=== PATIENT | male | born 1960 | race Caucasian/White ===

== ENCOUNTER 2020-10-09 19:11 | Observation (INO) | payer MEDICAID ==
--- NOTE | 2020-10-09 19:27 | ER Document Report ---
ED General - General Chief Complaint: Shortness Of Breath Stated Complaint: SHORTNESS OF BREATH Time Seen by Provider: 10/09/20 19:26 Primary Care Provider: CATHRYN PITTS [NO LOCAL MD] - Follow up as needed - HPI Notes: 59-year male presents with shortness of breath. 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 He reports that he has had a cough for about the past week. For the past 3 days he feels like he cannot exhale, he is wheezing, has had shortness of breath. States that his symptoms greatly increased tonight, felt like he plateaued. He received 2 nebulized treatments, 2 g magnesium, 125 mg Solu-Medrol with EMS. He reports that he had improvement with him symptoms, however now symptoms are returning. Per EMS report he was found tripoding. He has never used BiPAP/CPAP before. EMS Covid swab negative. - Related Data Allergies/Adverse Reactions: erythromycin base Allergy (Verified 10/09/20 20:59) Past Medical History - General Information source: Patient - Social History Smoking Status: Current Every Day Smoker Family History: Reviewed & Not Pertinent Review of Systems - Review of Systems Constitutional: denies: Fever EENT: No symptoms reported Cardiovascular: denies: Chest pain Respiratory: Cough, Short of breath, Wheezing Gastrointestinal: denies: Abdominal pain, Diarrhea, Nausea, Vomiting Genitourinary: No symptoms reported Male Genitourinary: No symptoms reported Musculoskeletal: No symptoms reported Skin: No symptoms reported Hematologic/Lymphatic: No symptoms reported Neurological/Psychological: No symptoms reported Physical Exam - Vital signs Vitals: Resp BP Pulse Ox 21 H 130/104 H 99 10/09/20 19:20 10/09/20 19:20 10/09/20 19:20 - General General appearance: Alert In distress: Moderate - HEENT Head: Normocephalic, Atraumatic Extraocular movements intact: Yes Pupils: PERRL - Respiratory Respiratory status: Labored, Pursed lip breathing, Other - Speaks in short sentences Breath sounds: Decreased air movement, Wheezing - Diffuse - Cardiovascular Rhythm: Regular Heart sounds: Normal auscultation - Abdominal Tenderness: Nontender - Extremities General lower extremity: No: Edema - Neurological Neuro grossly intact: Yes Cognition: Normal Orientation: AAOx4 - Psychological Associated symptoms: Normal affect - Skin Skin Temperature: Warm Course - Re-evaluation Re-evalutation: 59-year-old male history of COPD presents with cough and worsening shortness of breath over the past 3 days. Patient arrives in respiratory distress, pursed lip breathing, tachypnea, speaking in short sentences, poor air movement and diffuse wheezing. Given his respiratory status, he was started on BiPAP along with 20 mg continuous albuterol. Received magnesium and steroids prior to arrival. Rapid Covid swab negative with EMS, will obtain full respiratory panel to see if there is any viral illness triggering his COPD exacerbation. Chest x- ray to evaluate for consolidation. He does not appear edematous, however will obtain BNP to see if there is any signs of heart failure. EKG nonischemic, no chest pain. 10/09/20 21:07 Patient reassessed after albuterol has finished. Lungs sounds markedly and croup, increased air movement, wheezing is much less pronounced. Looks more comfortable and states he is feeling better 10/09/20 21:09 More information obtained from patient. Patient has history of HI in October 2019, he then underwent CABG P reports he then had another HI in March [address] ICD as "bypass didn't work". He receives his care in [place] typically. Nursing spoke to his , apparently patient is also supposed to be on home O2 but refuses to wear it. 10/09/20 21:46 Mild leukocytosis, no associated left shift. Elevated eosinophils which can be seen with respiratory disease. Electrolytes within normal is. Creatinine within normal limits. No marked elevation of BNP. Respiratory panel negative. Chest x-ray without consolidation. 10/09/20 21:48 Resp 10/09/20 21:[address] Frey for admission. Will trial patient off BiPAP - Vital Signs Vital signs: Temp Pulse Resp BP Pulse Ox 97.9 F 95 26 H 132/109 H 95 10/09/20 20:13 10/09/20 20:13 10/09/20 22:00 10/09/20 22:00 10/09/20 22:00 - Laboratory Results Result Diagrams: 10/09/20 19:27 10/09/20 19:27 Laboratory Results Interpreted: 10/09/20 10/09/20 10/09/20 19:27 19: 22:00 WBC 11.0 H Eos % (Auto) 15.1 H Absolute Eos (auto) 1.7 H VBG pH 7.28 L NT-Pro-B Natriuret Pep 240 H Critical Laboratory Results Reviewed: No Critical Results - Radiology Results Critical Radiology Results Reviewed: No Critical Results - EKG Interpretation by Me Additional EKG results interpreted by me: EKG is interpreted by me. Sinus rhythm, rate 94. QRS 102, QTC within normal limits. Q waves inferiorly, previous HI. No ST segment elevation or depression. Discharge - Discharge Clinical Impression: COPD exacerbation Disposition: ADMITTED INPATIENT Admitting Provider: [facility] Unit Admitted: Medical Floor Referrals: LOCALMD,NO [NO LOCAL MD] - Follow up as needed
[2020-10-09] MEDS ORDERED: ALBUTEROL SULFATE 0.083% NEB 2.5 MG/3 ML AMPUL NEB ONE (19:33)
[2020-10-09] MEDS ORDERED: GUAIFENESIN 600 MG TABLET.SA PO ONE (19:34)
[2020-10-09 20:05] LABS: ABSOLUTE EOSINOPHILS # (AUTO) 1.7 10^3/uL (0.0-0.6); ABSOLUTE LYMPHOCYTES (AUTO) 1.8 10^3/uL (0.5-4.7); ABSOLUTE MONOCYTES (AUTO) 0.8 10^3/uL (0.1-1.4); ABSOLUTE NEUT (AUTO) 6.6 10^3/uL (1.7-8.2); ANION GAP 7 (5-19); BASOPHILS % (AUTO) 0.3 % (0-2); BLOOD UREA NITROGEN 9 mg/dL (7-20); CALCIUM 9.7 mg/dL (8.4-10.2); CARBON DIOXIDE 24 mmol/L (22-30); CHLORIDE 107 mmol/L (98-107); EOSINOPHILS % (AUTO) 15.1 % (0-6); GLUCOSE 108 mg/dL (75-110); HEMATOCRIT 45.2 % (37.9-51.0); HEMOGLOBIN 15.3 g/dL (13.5-17.0); LYMPHOCYTES % (AUTO) 16.8 % (13-45); MEAN CORPUSCULAR HEMOGLOBIN 30.1 pg (27.0-33.4); MEAN CORPUSCULAR HGB CONC 33.8 g/dL (32.0-36.0); MEAN CORPUSCULAR VOLUME 89 fl (80-97); MONOCYTES % (AUTO) 7.4 % (3-13); PLATELET COUNT 251 10^3/uL (150-450); POTASSIUM 4.2 mmol/L (3.6-5.0); RED BLOOD COUNT 5.08 10^6/uL (4.35-5.55); RED CELL DISTRIBUTION WIDTH 13.7 % (11.5-14.0); SEGMENTED NEUTROPHILS % (AUTO) 60.4 % (42-78); TOTAL CELLS COUNTED % (AUTO) 100 %
--- NOTE | 2020-10-09 20:49 | RADIOLOGY REPORT (SQ) ---
CLINICAL INDICATION: SOB. TECHNIQUE: A single portable AP view was obtained of the chest at 2014 hours. Additional repeat image COMPARISON: None. FINDINGS: The cardiomediastinal silhouette is enlarged but stable. The lungs are grossly clear. No evidence of effusion or pneumothorax. Chronic parenchymal lung change. Crowding at the bases. Emphysematous change. IMPRESSION: No evidence of active intrathoracic disease. Chronic change
[2020-10-09 22:06] LABS: VENOUS BLOOD BASE EXCESS -2.3 mmol/L; VENOUS BLOOD HCO3 25.4 mmol/L (20-32); VENOUS BLOOD PCO2 55.5 mmHg (35-63); VENOUS BLOOD PH 7.28 (7.30-7.42)
[2020-10-09] MEDS ORDERED: ACETAMINOPHEN 325 MG TABLET PO PRN (22:34)
[2020-10-09] MEDS ORDERED: IPRATROPIUM/ALBUTEROL 0.5-2.5 MG/3 ML AMPUL NEB PRN (22:34)
[2020-10-09] MEDS: METOPROLOL SUCCINATE 25 MG TAB.SR.24H PO SCH (23:08)
[2020-10-09] MEDS: FAMOTIDINE 20 MG TABLET PO SCH (23:08)
--- NOTE | 2020-10-09 23:36 | PDOC H&P ---
History of Present Illness Admission Date/PCP: VALERI WALLER NP Patient complains of: Shortness of breath History of Present Illness: DEAN WOODS is a 59 year old male with a history of COPD, CAD status post CABG a year ago who now presents with 1 day duration of worsening of shortness of breath. Patient states that he has a longstanding chronic shortness of breath with exertion but over the past 24 hours the shortness of breath got worse to a level where he became short of breath at rest. He states that he used nebulizer multiple times at home but did not improve. Patient also states that he has been having more cough than usual for the past 2 weeks which is productive of clear whitish sputum. He denies any fever, chills, chest pain, palpitation, nausea, vomiting, body aches, runny nose, sore throat any change in his bowel or urinary habits. He denies any recent sick contact history. Past Medical History Cardiac Medical History: Reports: Hyperlipidema, Hypertension Pulmonary Medical History: Reports: Chronic Obstructive Pulmonary Disease (COPD) Past Surgical History Past Surgical History: Reports: Cardiac Catheterization - stents x5 Social History Information Source: Patient Lives with: Family Smoking Status: Current Every Day Smoker Hx Recreational Drug Use: No Drugs: None - Advance Directive Resuscitation Status: Full Code Family History Parental Family History Reviewed: Yes Children Family History Reviewed: Yes Sibling(s) Family History Reviewed.: Yes Medication/Allergy Allergies/Adverse Reactions: erythromycin base Allergy (Verified 10/09/20 20:59) Review of Systems Constitutional: ABSENT: chills, fever(s), headache(s), weight gain, weight loss Eyes: ABSENT: visual disturbances Ears: ABSENT: hearing changes Nose, Mouth, and Throat: ABSENT: headache(s), mouth pain, sore throat Cardiovascular: PRESENT: as per HPI. ABSENT: chest pain, edema, orthropnea, palpitations Respiratory: PRESENT: as per HPI Gastrointestinal: ABSENT: abdominal pain, constipation, diarrhea, hematemesis, hematochezia, nausea, vomiting Genitourinary: ABSENT: dysuria, hematuria Musculoskeletal: ABSENT: joint swelling Integumentary: ABSENT: rash, wounds Neurological: ABSENT: abnormal gait, abnormal speech, confusion, dizziness, focal weakness, syncope Psychiatric: ABSENT: anxiety, depression, homidical ideation, suicidal ideation Endocrine: ABSENT: cold intolerance, heat intolerance, polydipsia, polyuria Hematologic/Lymphatic: ABSENT: easy bleeding, easy bruising Physical Exam Vital Signs: Temp Pulse Resp BP Pulse Ox 97.9 F 95 26 H 132/109 H 95 10/09/20 20:13 10/09/20 20:13 10/09/20 22:00 10/09/20 22:00 10/09/20 22:00 Intake & Output 10/08/20 10/09/20 10/10/20 06:59 06:59 06:59 Weight 84.7 kg Additional comments: GENERAL APPEARANCE: Alert and oriented x3, in no acute distress HEENT: Normocephalic and atraumatic. No scleral icterus. Moist oral mucosa NECK: Supple. No lymphadenopathy or tenderness. No carotid bruit. No JVD CHEST: Symmetric. Nontender to palpation. LUNGS: Decreased air movement bilaterally. No wheezing or crackles appreciated HEART: Regular rate and rhythm with normal S1 and S2. No murmurs, gallops, or rubs. ABDOMEN: Flat, soft, active bowel sounds, no direct or rebound tenderness. No organomegaly detected. EXTREMITIES: No cyanosis, clubbing, or edema. MUSCULOSKELETAL: No deformity, atrophy or swelling noted PSYCHIATRIC: Recent and remote memory is intact. Appropriate mood and affect. SKIN: Warm, dry, and well perfused. No lesions or rashes are noted. NEUROLOGIC: No focal sensory or motor deficits are noted. Results Laboratory Results: 10/09/20 19:27 10/09/20 19:27 10/09/20 10/09/20 10/09/20 19:27 19:27 22:00 WBC 11.0 H RBC 5.08 Hgb 15.3 Hct 45.2 MCV 89 MCH 30.1 MCHC 33.8 RDW 13.7 Plt Count 251 Seg Neutrophils % 60.4 VBG pH 7.28 L VBG pCO2 55.5 VBG HCO3 25.4 VBG Base Excess -2.3 Sodium 137.9 Potassium 4.2 Chloride 107 Carbon Dioxide 24 Anion Gap 7 BUN 9 Creatinine 0.94 Est GFR ( Amer) > 60 Glucose 108 Calcium 9.7 10/09/20 19:27 NT-Pro-B Natriuret Pep 240 H Impressions: Chest X-Ray 10/09/20 19:33 IMPRESSION: No evidence of active intrathoracic disease. Chronic change Assessment and Plan - Diagnosis (1) COPD exacerbation Is this a current diagnosis for this admission?: Yes Plan: Presents with acute worsening of shortness of breath Physical exam was notable for globally decreased air movement Chest x-ray showed no acute findings Has no leukocytosis Venous blood gas showed a pH of 7.28 with a PCO2 of 55 On arrival to the ED patient was in significant respiratory distress and was placed on BiPAP, was given magnesium sulfate, IV steroid and breathing treatment which improved his symptoms Continue present treatment with DuoNeb Placed him on prednisone 40 mg p.o. daily Azithromycin 500 mg p.o. daily Currently patient appears to be doing well and will transition him to intranasal oxygen Closely monitor respiratory parameters for any sign of impending respiratory failure (2) CAD (coronary artery disease) Is this a current diagnosis for this admission?: Yes Plan: Patient denies chest pain on this presentation Continue metoprolol, aspirin and high intensity statin (3) Hx of CABG Is this a current diagnosis for this admission?: Yes Plan: Continue management as stated above (4) ICD (implantable cardioverter-defibrillator) in place Is this a current diagnosis for this admission?: Yes (5) Overweight (BMI 25.0-29.9) Is this a current diagnosis for this admission?: Yes - Time Time Spent with patient: 35 or more minutes Total Critical Time (Minutes): 45 Smoking Cessation Education: 3 to 10 minutes Medications reviewed and adjusted accordingly: Yes Anticipated Discharge Disposition: Home, Self Care Anticipated Discharge Timeframe: within 72 hours - Inpatient Certification Based on my medical assessment, after consideration of the patient's comorbidities, presenting symptoms, or acuity I expect that the services needed warrant INPATIENT care.: Yes I certify that my determination is in accordance with my understanding of Medicare's requirements for reasonable and necessary INPATIENT services [42 CFR 412.3e].: Yes Medical Necessity: Failure to Improve With Outpatient Therapy, Need for Nebulizer Therapy and Monitoring of Response, Risk of Complication if Not Cared For in Hospital Post Hospital Care: D/C or Transfer Summary
[2020-10-10 06:44] LABS: ABSOLUTE LYMPHOCYTES (AUTO) 0.5 10^3/uL (0.5-4.7); ABSOLUTE MONOCYTES (AUTO) 0.1 10^3/uL (0.1-1.4); ABSOLUTE NEUT (AUTO) 5.5 10^3/uL (1.7-8.2); BASOPHILS % (AUTO) 0.1 % (0-2); EOSINOPHILS % (AUTO) 0.6 % (0-6); HEMATOCRIT 42.3 % (37.9-51.0); HEMOGLOBIN 14.4 g/dL (13.5-17.0); LYMPHOCYTES % (AUTO) 7.7 % (13-45); MEAN CORPUSCULAR VOLUME 88 fl (80-97); PLATELET COUNT 226 10^3/uL (150-450); RED BLOOD COUNT 4.79 10^6/uL (4.35-5.55); RED CELL DISTRIBUTION WIDTH 13.5 % (11.5-14.0); SEGMENTED NEUTROPHILS % (AUTO) 89.6 % (42-78); TOTAL CELLS COUNTED % (AUTO) 100 %; WHITE BLOOD COUNT 6.2 10^3/uL (4.0-10.5)
[2020-10-10 07:05] LABS: ALBUMIN 4.4 g/dL (3.5-5.0); ALKALINE PHOSPHATASE 81 U/L (38-126); ANION GAP 9 (5-19); ASPARTATE AMINO TRANSFERASE 20 U/L (17-59); BILIRUBIN,DIRECT 0.2 mg/dL (0.0-0.4); BILIRUBIN,TOTAL 0.4 mg/dL (0.2-1.3); BLOOD UREA NITROGEN 12 mg/dL (7-20); CALCIUM 9.9 mg/dL (8.4-10.2); CARBON DIOXIDE 22 mmol/L (22-30); CHLORIDE 106 mmol/L (98-107); GLUCOSE 165 mg/dL (75-110); POTASSIUM 4.6 mmol/L (3.6-5.0)
[2020-10-10] MEDS: FAMOTIDINE 20 MG TABLET PO SCH (09:36)
[2020-10-10] MEDS: METOPROLOL SUCCINATE 25 MG TAB.SR.24H PO SCH (09:36)
[2020-10-10] MEDS ORDERED: ASPIRIN 81 MG TABLET, CHEWABLE PO SCH (10:00)
[2020-10-10] MEDS ORDERED: ENOXAPARIN SODIUM INJ 40 MG/0.4 ML DISP.SYRIN SUBCUT SCH (10:00)
[2020-10-10 12:59] VITALS: BP 122/81
--- NOTE | 2020-10-10 14:44 | PDOC DISCHARGE SUMMARY ---
Impression - Admit/DC Date/PCP Admission Date/Primary Care Provider: 10/09/20 23:02 VALERI WALLER NP Discharge Date: 10/10/20 - Discharge Diagnosis (1) COPD exacerbation Is this a current diagnosis for this admission?: Yes (2) CAD (coronary artery disease) Is this a current diagnosis for this admission?: Yes (3) Hx of CABG Is this a current diagnosis for this admission?: Yes (4) ICD (implantable cardioverter-defibrillator) in place Is this a current diagnosis for this admission?: Yes (5) Overweight (BMI 25.0-29.9) Is this a current diagnosis for this admission?: Yes - Additional Information Resuscitation Status: Full Code Discharge Diet: Regular Discharge Activity: Activity As Tolerated Referrals: VALERI WALLER NP [Primary Care Provider] - 10/14/20 9:00 am Prescriptions: Prednisone [Deltasone 20 mg Tablet] 40 mg PO DAILY 5 Days #10 tablet Ipratropium/Albuterol Sulfate [Duoneb 3 ml Ampul] 3 ml NEB RTQ6HP PRN #30 vial.neb PRN Reason: Doxycycline Hyclate [Vibramycin 100 mg Tablet] 100 mg PO BID 4 Days #8 tablet Home Medications: Aspirin [Aspirin 81 mg Chewable Tablet] 81 mg PO DAILY 10/10/20 Atorvastatin Calcium [Lipitor] 80 mg PO QPM 10/10/20 Clopidogrel Bisulfate [Plavix 75 mg Tablet] 75 mg PO DAILY 10/10/20 Doxycycline Hyclate [Vibramycin 100 mg Tablet] 100 mg PO BID 4 Days #8 tablet 10/10/20 Fluticasone/Umeclidin/Vilanter [Trelegy 100-62.5-25 Mcg Ellipta 14 Dose/Dpi] 1 puff IH QAM 10/10/20 Ipratropium/Albuterol Sulfate [Duoneb 3 ml Ampul] 3 ml NEB RTQ6HP PRN #30 vial.neb 10/10/20 Lisinopril [Prinivil 5 mg Tablet] 5 mg PO QPM 10/10/20 Metoprolol Succinate [Toprol Xl 50 mg Tab.sr] 50 mg PO DAILY 10/10/20 Prednisone [Deltasone 20 mg Tablet] 40 mg PO DAILY 5 Days #10 tablet 10/10/20 Ranolazine [Ranolazine ER] 500 mg PO BID 10/10/20 History of Present Illiness History of Present Illness: According to admitting provider: DEAN WOODS is a 59 year old male with a history of COPD, CAD status post CABG a year ago who now presents with 1 day duration of worsening of shortness of breath. Patient states that he has a longstanding chronic shortness of breath with exertion but over the past 24 hours the shortness of breath got worse to a level where he became short of breath at rest. He states that he used nebulizer multiple times at home but did not improve. Patient also states that he has been having more cough than usual for the past 2 weeks which is productive of clear whitish sputum. He denies any fever, chills, chest pain, palpitation, nausea, vomiting, body aches, runny nose, sore throat any change in his bowel or urinary habits. He denies any recent sick contact history. Hospital Course Hospital Course: Patient presented to the hospital with shortness of breath and audible wheezing. He was treated for acute COPD exacerbation. It seems his COPD exacerbation was secondary to sandblasting activity that he did at home. He has increased cough and increased sputum production. Initially in the ER, he was noted to be working to breathe. He was given treatment with DuoNeb's. He also received steroids. His breathing subsequently improved. His chest x-ray shows no evidence of pneumonia. Covid test was negative. Today, he is doing a lot better. He is very to baseline terms of his breathing. He is also saturating adequately on room air this morning. He has no evidence of labored breathing on his stable. Discharged home on DuoNeb's to use with his nebulizer nebulizer, doxycycline as well as prednisone for continued treatment of his COPD exacerbation. Physical Exam Vital Signs: Temp Pulse Resp BP Pulse Ox 98.1 F 84 16 122/81 97 10/10/20 12:55 10/10/20 13:02 10/10/20 13:02 10/10/20 12:55 10/10/20 13:02 Intake & Output 10/09/20 10/10/20 10/11/20 06:59 06:59 06:59 Intake Total 222 831 Balance 222 831 Weight 76.1 kg General appearance: PRESENT: no acute distress, cooperative Neck exam: ABSENT: JVD Respiratory exam: PRESENT: symmetrical, unlabored, wheezes - mild expiratory wheezing in bilateral lungs. ABSENT: accessory muscle use, retraction, tachypnea Cardiovascular exam: PRESENT: +S1, +S2. ABSENT: tachycardia GI/Abdominal exam: PRESENT: soft. ABSENT: tenderness Musculoskeletal exam: PRESENT: ambulatory Neurological exam: PRESENT: alert, awake, oriented to person, oriented to place, oriented to time Results Laboratory Results: WBC 6.2 10^3/uL (4.0-10.5) 10/10/20 05:46 RBC 4.79 10^6/uL (4.35-5.55) 10/10/20 05:46 Hgb 14.4 g/dL (13.5-17.0) 10/10/20 05:46 Hct 42.3 % (37.9-51.0) 10/10/20 05:46 MCV 88 fl (80-97) 10/10/20 05:46 MCH 30.0 pg (27.0-33.4) 10/10/20 05:46 MCHC 34.0 g/dL (32.0-36.0) 10/10/20 05:46 RDW 13.5 % (11.5-14.0) 10/10/20 05:46 Plt Count 226 10^3/uL (150-450) 10/10/20 05:46 Lymph % (Auto) 7.7 % (13-45) L 10/10/20 05:46 [place] % (Auto) 2.0 % (3-13) L 10/10/20 05:46 Eos % (Auto) 0.6 % (0-6) 10/10/20 05:46 Baso % (Auto) 0.1 % (0-2) 10/10/20 05:46 Absolute Neuts (auto) 5.5 10^3/uL (1.7-8.2) 10/10/20 05:46 Absolute Lymphs (auto) 0.5 10^3/uL (0.5-4.7) 10/10/20 05:46 Absolute Monos (auto) 0.1 10^3/uL (0.1-1.4) 10/10/20 05:46 Absolute Eos (auto) 0.0 10^3/uL (0.0-0.6) 10/10/20 05:46 Absolute Basos (auto) 0.0 10^3/uL (0.0-0.2) 10/10/20 05:46 Seg Neutrophils % 89.6 % (42-78) H 10/10/20 05:46 VBG pH 7.28 (7.30-7.42) L 10/09/20 22:00 VBG pCO2 55.5 mmHg (35-63) 10/09/20 22:00 VBG HCO3 25.4 mmol/L (20-32) 10/09/20 22:00 VBG Base Excess -2.3 mmol/L 10/09/20 22:00 Sodium 137.3 mmol/L (137-145) 10/10/20 05:46 Potassium 4.6 mmol/L (3.6-5.0) 10/10/20 05:46 Chloride 106 mmol/L (98-107) 10/10/20 05:46 Carbon Dioxide 22 mmol/L (22-30) 10/10/20 05:46 Anion Gap 9 (5-19) 10/10/20 05:46 BUN 12 mg/dL (7-20) 10/10/20 05:46 Creatinine 0.86 mg/dL (0.52-1.25) 10/10/20 05:46 Est GFR ( Amer) > 60 (>60) 10/10/20 05:46 Est GFR (MDRD) Non-Af > 60 (>60) 10/10/20 05:46 Glucose 165 mg/dL (75-110) H 10/10/20 05:46 Calcium 9.9 mg/dL (8.4-10.2) 10/10/20 05:46 Total Bilirubin 0.4 mg/dL (0.2-1.3) 10/10/20 05:46 Direct Bilirubin 0.2 mg/dL (0.0-0.4) 10/10/20 05:46 Neonat Total Bilirubin Not Reportable 10/10/20 05:46 Neonat Direct Bilirubin Not Reportable 10/10/20 05:46 Neonat Indirect Bili Not Reportable 10/10/20 05:46 AST 20 U/L (17-59) 10/10/20 05:46 ALT 22 U/L (<50) 10/10/20 05:46 Alkaline Phosphatase 81 U/L (38-126) 10/10/20 05:46 NT-Pro-B Natriuret Pep 240 pg/mL (<125) H 10/09/20 19:27 Total Protein 7.0 g/dL (6.3-8.2) 10/10/20 05:46 Albumin 4.4 g/dL (3.5-5.0) 10/10/20 05:46 Luca Human Metapneumo PCR NOT DETECTED (NOT DETECT) 10/09/20 20:31 Adenovirus (PCR) NOT DETECTED (NOT DETECT) 10/09/20 20:31 B. pertussis DNA (PCR) NOT DETECTED (NOT DETECT) 10/09/20 20: B.parapertussis DNA PCR NOT DETECTED (NOT DETECT) 10/09/20 20: C. pneumoniae DNA (PCR) NOT DETECTED (NOT DETECT) 10/09/20 20: Coronavirus OC43 (PCR) NOT DETECTED (NOT DETECT) 10/09/20 20: Coronavirus HKU1 (PCR) NOT DETECTED (NOT DETECT) 10/09/20 20: Coronavirus 229E (PCR) NOT DETECTED (NOT DETECT) 10/09/20 20: Coronavirus NL63 (PCR) NOT DETECTED (NOT DETECT) 10/09/20 20:31 Influenza A (H1) PCR NOT DETECTED (NOT DETECT) 10/09/20 20: Influ A (H1N1/09) PCR NOT DETECTED (NOT DETECT) 10/09/20 20:31 Influenza A (H3) PCR NOT DETECTED (NOT DETECT) 10/09/20 20:31 Influenza Type A (PCR) NOT DETECTED (NOT DETECT) 10/09/20 20:31 Influenza Type B (PCR) NOT DETECTED (NOT DETECT) 10/09/20 20:31 M. pneumoniae (PCR) NOT DETECTED (NOT DETECT) 10/09/20 20:31 Parainfluenza 1 (PCR) NOT DETECTED (NOT DETECT) 10/09/20 20: Parainfluenza 2 (PCR) NOT DETECTED (NOT DETECT) 10/09/20 20:31 Parainfluenza 3 (PCR) NOT DETECTED (NOT DETECT) 10/09/20 20:31 Parainfluenza 4 (PCR) NOT DETECTED (NOT DETECT) 10/09/20 20:31 RSV (PCR) NOT DETECTED (NOT DETECT) 10/09/20 20:31 Entero/Rhino (PCR) NOT DETECTED (NOT DETECT) 10/09/20 20:31 SARS-CoV-2 (PCR) NOT DETECTED (NOT DETECT) 10/09/20 20:31 10/09/20 19:27 NT-Pro-B Natriuret Pep 240 H Impressions: Chest X-Ray 10/09/20 19:33 IMPRESSION: No evidence of active intrathoracic disease. Chronic change Plan Time Spent: Less than 30 Minutes Stroke Is this a Stroke Patient?: No Acute Heart Failure Is this a Heart Failure Patient?: No
--- NOTE | 2020-10-10 15:03 | EKG REPORT ---
SEVERITY:- ABNORMAL ECG - SINUS RHYTHM POSSIBLE INFERIOR INFARCT, AGE INDETERMINATE BORDERLINE R WAVE PROGRESSION, ANTERIOR LEADS : Confirmed by: Tam Burt MD 10-Oct-2020 15:02:06
[2020-10-10] MEDS ORDERED: ATORVASTATIN CALCIUM 40 MG TABLET PO SCH (22:00)
== END 2020-10-10 14:49 | disposition home or self-care (01) ==
LOC: ER 19:11 → INTOOBSV 23:02 → EH 23:02 → 3W 10-10 02:42
PROVIDERS: ADMIT Student in an Organized Health Care Education/Training Program; ATTEND Internal Medicine
DX: J44.1 Chronic obstructive pulmonary disease with (acute) exacerbation (principal); I25.10 Atherosclerotic heart disease of native coronary artery without angina pectoris; E66.3 Overweight; F17.200 Nicotine dependence, unspecified, uncomplicated; E78.5 Hyperlipidemia, unspecified; I10 Essential (primary) hypertension; Z20.822 Contact with and (suspected) exposure to COVID-19; Z95.1 Presence of aortocoronary bypass graft; Z68.25 Body mass index [BMI] 25.0-25.9, adult; Z95.810 Presence of automatic (implantable) cardiac defibrillator; Z79.899 Other long term (current) drug therapy; Z79.82 Long term (current) use of aspirin; Z79.02 Long term (current) use of antithrombotics/antiplatelets; Z95.5 Presence of coronary angioplasty implant and graft; D72.829 Elevated white blood cell count, unspecified; I25.2 Old myocardial infarction; Z91.19 Patient's noncompliance with other medical treatment and regimen
CPT/HCPCS: 93005; 94640 ×2; 99285; 36415 ×2; 85025 ×2; 0202U; 80048; 80053; 82803; 83880; 71045; 93010; G0378 ×2; J3490 ×5; J1650; J7613